=== PATIENT | female | born 1980 ===

== ENCOUNTER 2018-01-05 08:55 | Day surgery (SDC) | payer OTHER ==
--- NOTE | 2017-12-30 21:29 | HP ---
AMENDED REPORT NOW INCLUDES DESIGNATED COSIGNER CC: [facility] [place], Attention: Dr. Bolanos * ADMISSION HISTORY AND PHYSICAL: DATE OF ADMISSION: 01/05/18 ATTENDING PHYSICIAN: Dr. Edgardo Hope.* (DICTATED BY MYRTLE LEDEZMA) CHIEF COMPLAINT: Right breast lump. HISTORY OF PRESENT ILLNESS: This is a generally healthy 37-year-old female, who first noted the presence of a right breast lump in the upper outer quadrant now about 2 months ago. It was not associated with any pain or tenderness, skin or nipple changes or nipple discharge. She does not do a regular breast self exam. She has not had any prior biopsies or breast related problems. There is no known family history of breast cancer. She is status post subtotal hysterectomy for benign disease and still has her ovaries. She was seen initially at the [facility] [place] and referred here. She was seen by Dr. Hope on 12/21/17, at which time, her exam revealed a 1.5 smooth mobile rubbery mass in the upper outer quadrant near the tail of the breast that felt consistent with fibroadenoma. A fine-needle aspiration was done and pathology showed fibroadenoma. He did have further discussion with her regarding options of surveillance and ultrasound versus excision. The patient understands the indications, the risks, benefits, and alternatives of the surgery and would like to proceed with excision of right breast mass. His exam did not reveal any other palpable masses or lymphadenopathy. PAST MEDICAL HISTORY: Chronic pelvic pain, chronic upper back and shoulder pain , chronic low back pain. Asthma (well controlled). She also was noted on the recent CT scan of the abdomen and pelvis to have a fat containing left inguinal hernia. She was evaluated for this by Dr. Rudolph, who did not feel that it was a cause of her current lower abdominal and pelvic pain and therefore a repair of that has been deferred. PAST SURGICAL HISTORY: Laparoscopic-assisted subtotal hysterectomy in 2013, and jaw surgery. No surgical or anesthesia complications. CURRENT MEDICATIONS: 1. Albuterol MDI p.r.n. (uses rarely). 2. Buspirone 10 mg b.i.d. p.r.n. (uses rarely). 3. Cyclobenzaprine 10 mg t.i.d. p.r.n. (uses rarely). 4. Metaxalone 800 mg t.i.d. p.r.n. (uses rarely). 5. Melatonin 10 mg at h.s. p.r.n. insomnia. 6. Lorazepam 0.5 mg b.i.d. p.r.n. for anxiety and/or insomnia (she has been using this more often as of late). ALLERGIES: AMOXICILLIN (nausea). FAMILY HISTORY: Negative for anesthesia problems, bleeding or clotting disorders. SOCIAL HISTORY: The patient is . 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 She is a former smoker, who quit approximately 10 years ago. She drinks on average 1 to 2 drinks per day. She denies use of other recreational drugs. REVIEW OF SYSTEMS: General: No recent constitutional symptoms or acute illnesses. Weight has been stable. HEENT: No problems reported. Cardiovascular: No chest pain, palpitations, history of heart murmur. Respiratory: No recent exacerbations or asthma. No cough or shortness of breath. GI: No problems reported. : No problems reported. 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 They are still in the evaluation process for chronic pelvic pain with recent referral made to one of the offices in [place] (she was seen locally by Dr. Bullock). Musculoskeletal: As above, no additions. Neuro/Psych: As above, no additions. Endocrine: No diabetes or thyroid dysfunction. PHYSICAL EXAMINATION GENERAL: Well-nourished, well-developed female, in no acute distress. VITAL SIGNS: Height 5 feet 5 inches, weight 123 pounds, blood pressure 100/66, pulse 78, respirations 16. She is afebrile. SKIN: Warm and dry. No suspicious rashes or lesions. HEENT: Pupils are equal, round, and reactive. EOMs intact. No conjunctival pallor. Oropharynx: Teeth in good repair. No intraoral lesions. Mucous membranes are moist. NECK: No lymphadenopathy, thyromegaly or masses. LUNGS: Clear to auscultation. No wheezes. HEART: Regular rate and rhythm. No murmur noted. BREASTS: As per Dr. Hope's exam, not repeated today. No palpable supraclavicular lymphadenopathy. ABDOMEN: Soft, nontender to palpation. No palpable masses or organomegaly. GENITALIA: Not done. RECTAL: Not done. BACK: No spinous process or CVA tenderness. EXTREMITIES: No edema. NEUROLOGIC: Grossly intact. IMPRESSION: Right breast mass (fibroadenoma). PLAN: Excision, right breast mass. MYRTLE LEDEZMA [id number]/[facility] #: [id number] MTDNikhil
[~2018-01-05 08:55] MED LIST: Buffered Lidocaine 0.9% SYRIN* 5 ML/SYR SYRINGE INTRADERM ONE
[2018-01-05] MEDS ORDERED: ceFAZolin 1 GM in Dextrose (*) 2 GM/100 ML BAG IVPB ONE (08:59)
[2018-01-05] MEDS ORDERED: fentaNYL* 50 MCG/ML 2 ML VIAL (100 MCG VIAL) ONE ×3 (09:54→11:59)
[2018-01-05] MEDS ORDERED: Midazolam* 1 MG/ML 2 ML VIAL (2 MG) ONE (09:54)
[2018-01-05] MEDS ORDERED: Bupivacaine 0.5% W/EPI SDV* 30 ML VIAL ONE (10:09)
[2018-01-05] MEDS ORDERED: Lidocaine 1% INJ* 10 MG/ML 30 ML SDV ONE (10:10)
[2018-01-05] MEDS ORDERED: Scopolamine 1.5 mg* PATCH ONE (10:17)
[2018-01-05] MEDS ORDERED: diPHENhydraMINE IV* 50 MG/ML 1 ml VIAL (BENADRYL) IV PRN (10:59)
[2018-01-05] MEDS ORDERED: HYDROcodone/ACETAMIN 5-325 MG* 1 TAB PO PRN ×2 (10:59)
[2018-01-05] MEDS ORDERED: Naloxone* 0.4 MG/ML 1 ML VIAL IV PRN (10:59)
[2018-01-05] MEDS ORDERED: HYDROmorphone INJ1* 1 MG/ML SYRINGE IV PRN (10:59)
[2018-01-05] MEDS ORDERED: Acetaminophen TAB* 325 MG PO PRN (10:59)
[2018-01-05] MEDS ORDERED: Ondansetron INJ* 2 MG/ML VIAL IV PRN (10:59)
[2018-01-05] MEDS ORDERED: Scopolamine 1.5 mg* PATCH TRANSDERM PRN (10:59)
[2018-01-05] MEDS ORDERED: PROCHLORPERAZINE INJ 5 MG/ML 2 ML VIAL IV PRN (10:59)
[2018-01-05] MEDS ORDERED: DiMENhydriNATE IV* 50 MG/ML VIAL IV PUSH PRN (10:59)
[2018-01-05] MEDS ORDERED: Propofol* 10 MG/ML 20 ML BTL IV PUSH ONE (11:12)
[2018-01-05] MEDS ORDERED: Ondansetron INJ* 2 MG/ML VIAL ONE (11:12)
[2018-01-05] MEDS ORDERED: Ketorolac INJ* 30 MG/ML 1 ML VIAL ONE (11:12)
[2018-01-05] MEDS ORDERED: Famotidine IV* 10 MG/ML 2 ML (20 mg) ONE (11:12)
[2018-01-05] MEDS ORDERED: Dexamethasone IV* 4 MG/ML 1 ML (4 MG) ONE (11:12)
[2018-01-05] MEDS: fentaNYL* 50 MCG/ML 2 ML VIAL (100 MCG VIAL) IV PRN ×2 (12:00→12:08)
[2018-01-05] MEDS ORDERED: HYDROcodone/ACETAMIN 5-325 MG* 1 TAB ONE (12:25)
[2018-01-05 13:47] VITALS: BP 125/81
--- NOTE | 2018-01-06 02:11 | OP ---
CC: [facility] * DATE OF OPERATION: 01/05/18 - SDS DATE OF : 80 SURGEON: Edgardo Hope MD SOLDERER FURNACE: None. ANESTHESIOLOGIST: Dr. Healy. ANESTHESIA: General anesthetic, local infiltration. PRE-OPERATIVE DIAGNOSIS: Fibroadenoma of right breast. POST-OPERATIVE DIAGNOSIS: Fibroadenoma of right breast. OPERATIVE PROCEDURE: Excision of fibroadenoma of right breast. DESCRIPTION OF PROCEDURE: The patient was spine on the operating room table. After adequate general anesthetic, compression stockings, Ulysses Hugger warmer, and intravenous antibiotics, the right breast was prepped with antiseptic and draped in a sterile fashion. Local infiltrative anesthesia was administered and approximately 4-cm incision was created and the fibroma was excised along with a little rim of breast tissue. This was sent in formalin for pathologic evaluation, and closure was accomplished using 3-0 and 5-0 Vicryl, followed by Steri-Strips. She tolerated the procedure well, was brought to Recovery in good condition. There are no complications. No drains. Pathologic specimen as above. Sponge and instrument counts correct. Estimated blood loss less than 20 mL. [id number]/[facility] #: [id number] MTDD
[2018-01-08] MEDS ORDERED: Scopolamine PATCH Remove* 1 NOTE MISC PATCH OFF ONE (11:00)
== END 2018-01-05 13:52 | disposition home or self-care (01) ==
LOC: OR 08:55
PROVIDERS: ATTEND Surgery
DX: D24.1 Benign neoplasm of right breast (principal); G89.29 Other chronic pain; F41.9 Anxiety disorder, unspecified; J45.909 Unspecified asthma, uncomplicated
CPT/HCPCS: 88307; A9270-GY; J0690; J1100; J1885; J2250; J2405; J2704; J3010

== ENCOUNTER 2019-04-23 12:02 | Emergency (ER) | payer OTHER ==
--- OUTSIDE RECORDS SUMMARY | 2019-04-23 12:11 | XMS REPORT | Continuity of Care Document ---
:1980 External Reference #:[id number] Author Name Jamie Alcala, OD Address [address] [place] [address] Care Team Providers Name Role Phone [facility] Care Team Information Solar Energy Sales Specialist [phone] Problems Description No Information Available Social History Type Date Description Comments Sex Unknown ETOH Use Occasionally consumes alcohol Tobacco Use Start: Unknown End: Unknown Patient is a former smoker Smoking Status Reviewed: 03/22/19 Patient is a former smoker Allergies, Adverse Reactions, Alerts Active Allergies Reaction Severity Comments Date Amoxicillin 03/22/2019 Medications Active Medications SIG Qnty Indications Ordering Provider Date Hydroxyzine HCL take one tablet Unknown 50mg by mouth every Tablets evening as needed Gabapentin Unknown 400mg Capsules Ativan take 1 tablet by Unknown 1mg Tablets mouth three times daily as needed maximum daily dose of 3 per day Valium one dose taken Unknown 2mg Tablets prior to mri lumbar spine Immunizations Description No Information Available Vital Signs Date Vital Result Comment 03/22/2019 12:06pm Intraocular Pressure Right Eye 15 mmHg Intraocular Pressure Left Eye 15 mmHg Results Description No Information Available Procedures Date Code Description Status 03/22/2019 07837 Refraction Completed 03/22/2019 10491 Eye Exam New Comprehensive Completed Medical Devices Description No Information Available Encounters Description No Information Available Assessments Date Code Description Provider 03/22/2019 H04.123 Dry eye syndrome of bilateral lacrimal glands Jamie Alcala, OD 03/22/2019 H52.13 Myopia, bilateral Jamie Alcala, OD Plan of Treatment 03/22/2019 - Jamie Alcala, ODH04.123 Dry eye syndrome of bilateral lacrimal glandsFollow up:yearly full, sooner PRNH52.13 Myopia, bilateralFollow up:yearly full, sooner PRN Functional Status Description No Information Available Mental Status Description No Information Available Referrals Description No Information Available
--- NOTE | 2019-04-23 14:37 | ED ---
GI/ HPI - HPI Summary HPI Summary: This pt is a 38 y/[facility]d [facility] and urethral pain s/ p possible injury last night. Pt reports she has hx of interstitial cystitis and is supposed to do bladder instillations at home weekly. She states she is followed up by a pelvic pain specialist at [facility] but does not see a urologist. She notes she was trained by nurses on how to get medications ( Heparin and lidocaine) to bladder using a catheter and did it for the first time last night but it did not work. Pt reports she used an 8 Tunisian catheter and was at least 2 inches in but couldn't get the catheter all way in to the bladder. She notes she tried several times for about 3 hours and it did not work. Pt states she believes she injured herself and had pain and was bleeding afterwards. She reports her pain was aggravated with urinating. Patient currently rates her pain 8/10 in severity. Pt is still passing urine but notes she has dysuria. Denies fever, nausea, vomiting, chest pain. LMP: s/p hysterectomy. Denies tobacco or drug use. Pt reports occasional alcohol use. - History of Current Complaint Chief Complaint: EDUrogenitalProblems Time Seen by Provider: 04/23/19 14:27 Stated Complaint: INJURY FROM CATHETER PER PT Hx Obtained From: Patient Onset/Duration: Started Hours Ago, Still Present Timing: Lasting Hours Current Severity: Moderate Pain Intensity: 8 Additional Location for Females: Other - urethra Associated Signs and Symptoms: Positive: Hematuria, Dysuria, Abdominal Pain. Negative: Nausea, Vomiting, Fever, Chest Pain Additional Signs & Symptoms: Positive: Other: - urethral pain Aggravating Factor(s): Voiding Alleviating Factor(s): Nothing - Allergy/Home Medications Allergies/Adverse Reactions: Allergies Allergy/AdvReac Type Severity Reaction Status Date / Time amoxicillin Allergy Nausea Verified 04/23/19 12:06 PMH/Surg Hx/FS Hx/Imm Hx Endocrine/Hematology History: Denies: Hx Diabetes Cardiovascular History: Denies: Hx Pacemaker/ICD Respiratory History: Reports: Hx Asthma - USES INHALER PRN WILL BRING DOS GI History: Reports: Hx Hiatal Hernia, Hx Irritable Bowel - RECENTLY DIAGNOSED History: Reports: Other Problems/Disorders - Interstitial cystitis Denies: Hx Renal Disease Musculoskeletal History: Reports: Other Musculoskeletal History - C-T SCAN RECENTLY, HAS BACK PAIN, NOT SURE OF RESULTS Sensory History: Denies: Hx Contacts or Glasses, Hx Hearing Aid Opthamlomology History: Denies: Hx Contacts or Glasses Psychiatric History: Reports: Hx Anxiety - USES MEDICATION PRN WANT TO TAKE ATIVAN AM OF SURGERY, Hx Depression - IN THE PAST, Hx Panic Disorder - Surgical History Surgical History: Yes Surgery Procedure, Year, and Place: TOTAL HYSTERECTOMY, [facility] 2013. JAW SURGERY 2010. LUMPECTOMY RIGHT BREAST 2018 [facility] Hx Anesthesia Reactions: No Infectious Disease History: No Infectious Disease History: Denies: Traveled Outside the [place] in Last 30 Days - Family History Known Family History: Positive: Cardiac Disease - Social History Alcohol Use: Weekly Substance Use Type: Reports: Prescribed Smoking Status (MU): Former Smoker Have You Smoked in the Last Year: No Review of Systems Negative: Fever Negative: Chest Pain Positive: Abdominal Pain. Negative: Vomiting, Nausea Genitourinary: Other - POSITIVE: urethral pain Positive: dysuria, hematuria All Other Systems Reviewed And Are Negative: Yes Physical Exam - Summary Physical Exam Summary: VITAL SIGNS: Reviewed. GENERAL: Patient is a well-developed and nourished female who is lying comfortable in the stretcher. Patient is not in any acute respiratory distress. HEAD AND FACE: No signs of trauma. No ecchymosis, hematomas or skull depressions. No sinus tenderness. EYES: PERRLA, EOMI x 2, No injected conjunctiva, no nystagmus. EARS: Hearing grossly intact. Ear canals and tympanic membranes are within normal limits. MOUTH: Oropharynx within normal limits. NECK: Supple, trachea is midline, no adenopathy, no JVD, no carotid bruit, no c- spine tenderness, neck with full ROM. CHEST: Symmetric, no tenderness at palpation LUNGS: Clear to auscultation bilaterally. No wheezing or crackles. CVS: Regular rate and rhythm, S1 and S2 present, no murmurs or gallops appreciated. ABDOMEN: Soft, tenderness in lower abdomen and pelvic area. No signs of distention. No rebound, no guarding, and no masses palpated. Bowel sounds are normal. EXTREMITIES: FROM in all major joints, no edema, no cyanosis or clubbing. NEURO: Alert and oriented x 3. No acute neurological deficits. Speech is normal and follows commands. SKIN: Dry and warm Triage Information Reviewed: Yes Vital Signs On Initial Exam: Initial Vitals Temp Pulse Resp BP Pulse Ox 98.5 F 67 16 120/86 98 04/23/19 12:03 04/23/19 12:03 04/23/19 12:03 04/23/19 12:03 04/23/19 12:03 Vital Signs Reviewed: Yes Procedures - Sedation Patient Received Moderate/Deep Sedation with Procedure: No Diagnostics - Vital Signs Vital Signs Temp Pulse Resp BP Pulse Ox 04/23/19 12:03 98.5 F 67 16 120/86 98 - Laboratory Result Diagrams: 04/23/19 14:45 04/23/19 14:45 Lab Statement: Any lab studies that have been ordered have been reviewed, and results considered in the medical decision making process. GIGU Course/Dx - Course Assessment/Plan: This pt is a 38 y/o female presenting to [facility] c/o abd pain and urethral pain s/p injury. Pt reports she has hx of interstitial cystitis and is supposed to do bladder instillations at home weekly. She states she is followed up by a pelvic pain specialist at [facility] but does not see a urologist. She notes she was trained by nurses on how to get medications ( Heparin and lidocaine) to bladder using a catheter and did it for the first time last night but it did not work. Pt reports she used an 8 Tunisian catheter and was at least 2 inches in but couldn't get the catheter all way in to the bladder. She notes she tried several times for about 3 hours and it did not work. Pt states she believes she injured herself and had pain and was bleeding afterwards. She reports her pain was aggravated with urinating. Patient currently rates her pain 8/10 in severity. Pt is still passing urine but notes she has dysuria. Denies fever, nausea, vomiting, chest pain. LMP: s/p hysterectomy. Denies tobacco or drug use. Pt reports occasional alcohol use. Lab work without a significant abnormality except for potassium level of 3.3. She was given potassium chloride. Total bili is 1.4. Urinalysis is negative for UTI. In the ED course we were able to Cath the urethra into the bladder and there were no strictures and no difficulty. Therefore, the patient will be discharged home with follow up from her primary care physician. The patient is hemodynamically stable, alert and oriented 3. - Diagnoses Provider Diagnoses: Urethral injury Discharge ED - Sign-Out/Discharge Documenting (check all that apply): Patient Departure - Discharge home - Discharge Plan Condition: Stable Disposition: HOME Patient Education Materials: Interstitial Cystitis (ED) Referrals: [facility] - Ricardo SCHUMACHER [Primary Care Provider] - Additional Instructions: FOLLOW UP WITH YOUR PRIMARY CARE PROVIDER IN 2-3 DAYS. RETURN TO THE ED FOR ANY NEW OR WORSENING SYMPTOMS. - Billing Disposition and Condition Condition: STABLE Disposition: Home - Attestation Statements Document Initiated by Scribe: Yes Documenting Scribe: Flora Pereyra Provider For Whom Scribe is Documenting (Include Credential): Justin Corbett MD Scribe Attestation: Flora Randolph, scribed for Justin Corbett MD on 04/25/19 at 0242. Scribe Documentation Reviewed: Yes Provider Attestation: The documentation as recorded by the Flora cunningham accurately reflects the service I personally performed and the decisions made by me, Justin Corbett MD Status of Scribe Document: Viewed
[2019-04-23] MEDS ORDERED: Lidocaine 2% JELLY* 10 ML JELLY TOPICAL ONE (14:40)
[2019-04-23 14:55] LABS: ABS Eosinophils 0.1 10^3/ul (0-0.6); ABS Lymphocytes 1.9 10^3/ul (1.0-4.8); ABS Monocytes 0.5 10^3/ul (0-0.8); ABS Neutrophils 3.1 10^3/ul (1.5-7.7); Eosinophil % 2.6 %; Hematocrit 40 % (35-47); Lymphocyte % 33.7 %; Mean Corpuscular HGB Conc 35 g/dL (31-36); Mean Corpuscular Hemoglobin 31 pg (27-31); Mean Corpuscular Volume 89 fL (80-97); Mean Platelet Volume 7.1 fL (7.4-10.4); Platelet Count 325 10^3/uL (150-450); Red Blood Count 4.53 10^6 /uL (3.70-4.87); Red Cell Distribution Width 13 % (10-15); White Blood Count 5.7 10^3/uL (3.5-10.8)
[2019-04-23 15:12] LABS: ALT 17 U/L (7-52); AST 19 U/L (13-39); Albumin 4.8 g/dL (3.2-5.2); Albumin/Globulin Ratio 1.8 (1-3); Alkaline Phosphatase 52 U/L (34-104); Anion Gap 6 mmol/L (2-11); BUN/Creatinine Ratio 13.9 (8-20); Blood Urea Nitrogen 10 mg/dL (6-24); C Reactive Protein < 1.00 mg/L (<8.01); CO2 Carbon Dioxide 28 mmol/L (22-32); Calcium 9.3 mg/dL (8.6-10.3); Chloride 103 mmol/L (101-111); EGFR African American 109.7 (>60); EGFR Non-African American 90.7 (>60); Globulin 2.6 g/dL (2-4); Glucose 88 mg/dL (70-100); Potassium 3.3 mmol/L (3.5-5.0); Sodium 137 mmol/L (135-145); Total Protein 7.4 g/dL (6.4-8.9)
[2019-04-23] MEDS ORDERED: Lidocaine 2% JELLY* 6 ML JELLY TOPICAL ONE (15:40)
[2019-04-23 16:47] LABS: Urine Appearance Clear; Urine Bilirubin Negative (Negative); Urine Blood 2+ (Negative); Urine Color Colorless; Urine Glucose Negative (Negative); Urine Ketones Trace (Negative); Urine Nitrite Negative (Negative); Urine Protein Negative (Negative); Urine Specific Gravity 1.002 (1.010-1.030); Urine Urobilinogen Negative (Negative)
[2019-04-23 16:50] LABS: Urine Bacteria Absent (Absent); Urine Red Blood Cell Trace(0-2/hpf) (Absent); Urine White Blood Cell Absent (Absent)
[2019-04-23 16:58] VITALS: BP 108/72
[2019-04-23] MEDS ORDERED: Potassium Chlor TAB* 20 MEQ TAB.ER PO ONE (16:58)
== END 2019-04-23 16:57 | disposition home or self-care (01) ==
LOC: ED 12:02
DX: S37.39XA Other injury of urethra, initial encounter (principal); X58.XXXA Exposure to other specified factors, initial encounter; Y93.89 Activity, other specified; Y92.9 Unspecified place or not applicable; N30.11 Interstitial cystitis (chronic) with hematuria; R30.0 Dysuria; J45.909 Unspecified asthma, uncomplicated; F41.9 Anxiety disorder, unspecified; Z90.710 Acquired absence of both cervix and uterus; Z88.0 Allergy status to penicillin; Z87.891 Personal history of nicotine dependence
CPT/HCPCS: 36415; 80053; 81003; 81015; 85025; 86140; 99282; A9270-GY